=== PATIENT | male | born 1995 | race Caucasian/White ===

== ENCOUNTER 2021-03-24 14:29 | Inpatient (IN) | payer BC, SELFPAY ==
[2021-03-24] VITALS (7 sets, daily range): BP systolic 134–157; BP diastolic 60–79; PULSE 116–124; RESP 24–28; TEMP 36.8–37.6; O2SAT 89–98; BMI 51.5
--- NOTE | ~2021-03-24 | CT_ITS ---
EXAMINATION: CT ANGIOGRAM OF THE CHEST WITH AND WITHOUT CONTRAST (CT PULMONARY ANGIOGRAM FOR PE) CLINICAL INFORMATION: Tachycardia. Hypoxia. COMPARISON: Chest x-ray earlier this evening TECHNIQUE: Prior to contrast administration, noncontrast localization images were obtained. Subsequently, multidetector volumetric imaging was performed from the thoracic inlet to below the diaphragms following the administration of 65 mL Omnipaque 350 intravenous contrast. No contrast reaction reported. Please note contrast injection is suboptimal due to positional IV flow and leakage of contrast during injection. Today's examination is limited secondary to respiratory motion artifact. Sagittal, coronal, and MIP oblique sagittal reformatted images were obtained on the CT workstation, uploaded to PACS, and reviewed. This CT examination was performed using dose optimization techniques as appropriate, variously including the following: *Automated exposure control *Adjustment of mA and/or kV according to patient size (this includes techniques or standardized protocols for targeted exams where dose is matched to indication/reason for exam; i.e. extremities or head) *Use of iterative reconstruction technique Total exam dose-length product 723 mGy-cm FINDINGS: Contrast bolus for pulmonary embolism is suboptimal. The heart is normal in size. There is no CT evidence to suggest right-sided heart strain. Evaluation for mediastinal lymphadenopathy is suboptimal although there appears to be a few mildly prominent mediastinal lymph nodes, for example a 3.7 cm lymph node. Normal caliber thoracic aorta. Diffuse soft tissue within the anterior mediastinum is nonspecific but most suggestive of residual thymus. No enlarged axillary lymph nodes. Central airways are patent. The lungs appear well aerated. Fine parenchymal detail is obscured due to prominent respiratory motion artifact, however, there appears to be subsegmental atelectasis within the lingula and right middle lobe. Some mild diffuse tree-in-bud and groundglass opacities are also noted. I do not appreciate any gross lobar consolidation. No pleural effusion or pneumothorax. Visualized portion of the upper abdomen demonstrate diffusely decreased attenuation of the liver suggesting hepatic steatosis. Densities within both kidneys are nonspecific but are suspected to represent contrast within the collecting system. No acute osseous abnormality. CT/CT angio chest PE protocol IMPRESSION: 1. Today's examination is significantly limited due to suboptimal contrast bolus and prominent respiratory motion artifact. 2. Evaluation for pulmonary embolus cannot be obtained on today's examination due to minimal contrast within the pulmonary arterial system. There is no CT evidence to suggest right-sided heart strain. 3. Appears to be a few prominent mediastinal lymph nodes, nonspecific. 4. Some mild diffuse tree-in-bud and groundglass opacities are suspected throughout the lungs suggesting an infectious or inflammatory etiology. Clinical correlation is recommended. 5. Diffusely decreased liver attenuation suggesting hepatic steatosis. Correlation with liver enzymes recommended. Given the significant limitations of today's imaging, follow-up CT may be warranted when the patient is able. VTE: indeterminate
--- NOTE | ~2021-03-24 | XR_ITS ---
EXAMINATION: XR CHEST CLINICAL INFORMATION: Dyspnea. COMPARISON: Chest x-ray 07/07/2016 TECHNIQUE: 2 views of the chest were obtained. FINDINGS: The lungs are well-expanded without acute pneumonic process. The heart size is normal. There is slight increased vascularity question mild vascular congestion. There is no pleural effusion. Bone windows reveal no calvarial abnormality. XR/XR chest 2V IMPRESSION: Mild increased pulmonary vascularity likely mild congestion.
[2021-03-24 15:39] LABS: COVID-19 Test Negative (Negative)
--- NOTE | 2021-03-24 16:35 | ECG_ITS ---
Test Reason : SOB Blood Pressure : / mmHG Vent. Rate : 117 BPM Atrial Rate : 117 BPM P-R Int : 144 ms QRS Dur : 076 ms QT Int : 326 ms P-R-T Axes : 015 049 017 degrees QTc Int : 454 ms Sinus tachycardia Otherwise normal ECG When compared with ECG of 10-OCT-2016 19:07, No significant changes seen Referred By: Natasha Coulter Electronically Signed By:KARINA INIGUEZ
--- NOTE | 2021-03-24 16:57 | ED.URI ---
HPI - URI/Sore Throat General Chief Complaint: Upper Respiratory Symptoms Stated Complaint: EAR PAIN DIFF BREATHING Time Seen by Provider: 03/24/21 16:35 Source: patient Mode of arrival: ambulatory Limitations: no limitations History of Present Illness HPI Narrative: 25-year-old male presents with 5 days of upper respiratory symptoms. He has had a cough, shortness of breath, body aches, chest tightness and fevers. MD elicited complaint: fever, cough, sore throat and nasal congestion Onset (ago): day(s) (5) Consistency: constant Severity: severe Pain scale (0-10): 8 Able to tolerate fluids by mouth: Yes Exacerbating factors: exertion, speaking and deep breaths Relieving factors: nothing Associated symptoms: fever, chills, myalgias, headache, sore throat, cough, shortness of breath and nausea Treatments prior to arrival: acetaminophen, ibuprofen and cold medicine Related Data Home Medications Medication Instructions Recorded Confirmed No Known Home Meds 03/24/21 03/24/21 Allergies Allergy/AdvReac Type Severity Reaction Status Date / Time No Known Allergies Allergy Unverified 01/07/20 16:23 Review of Systems Review of Systems: Constitutional: positive Fever, positive Chills, positive fatigue, positive Malaise ENT/Mouth: positive sore throat, positive runny nose, positive bilateral ear pain Eyes: No Discharge Cardiovascular: Positive Chest Pain, positive SOB, positive tachycardia Respiratory: Positive Cough, No Sputum, positive Wheezing, No Smoke Exposure, positive Dyspnea Gastrointestinal: No Nausea, No Vomiting, No Diarrhea Genitourinary: no irregular bleeding, No Dysuria, No Urinary Frequency, No Hematuria, No Urinary Incontinence, No Urgency, No Flank Pain, Musculoskeletal: positive Myalgia Skin: No rash Neuro: No Headache Yes all other systems are reviewed and are negative [facility] Past Medical History Attestation statement: The following information was validated with the patient. Source: old records reviewed Medical History Asthma Hx of fracture of arm Sleep apnea Surgical History History of surgery on arm Social History Social History Advance Directives: No Advance Directives Information Provided: No Physical Exam Vital Signs: Vital Signs: Last Vital Signs Temp 99.7 F 03/24/21 20:39 Pulse 124 H 03/24/21 21:10 Resp 28 H 03/24/21 20:36 BP 157/60 H 03/24/21 20:36 Pulse Ox 94 03/24/21 20:36 BMI result Body Mass Index 51.5 Appearance: Alert. Oriented X3. Moderate distress. Head: Normal external exam. Normocephalic. Atraumatic. No Ashby signs noted. No raccoon eyes noted Eyes: PERRLA. EOMI. Conjunctiva and sclera normal. Eyelids normal. ENT: TM's bulging and suppurative bilaterally. Pharynx normal. Uvula midline. Moist mucous membranes. No trismus noted. No drooling noted. No muffled voice noted. Neck: Normal inspection. Neck supple. Anterior posterior cervical adenopathy. No meningeal signs. No nuchal rigidity. No neck mass noted. CVS: Tachycardic heart rate and rhythm. Heart sound normal. Pulses equal to all extremities. Respiratory: Moderate respiratory distress. Painless inspiration. Wheezing and poor air flow throughout. Chest nontender. No accessory muscle usage noted or decreased air movement noted. Abdomen: Soft and nontender. Bowel sounds normal in all 4 quadrants. No distention noted. No organomegaly noted. No visible injury noted. Back: No CVA tenderness. Full range of motion noted. Skin: Skin warm and dry. Normal skin color. Normal skin turgor. No rashes/lesions/lacerations noted. Extremities: No lower extremity edema. Extremities exhibit normal range of motion. Extremities nontender. Neuro: cranial nerves 2-12 intact, no focal neural deficits, strength 5/5 to all extremities, No motor deficit. No sensory deficit. Course Course Course Narrative: E.d. waiting room time 2:00 a.m. and 28 minutes. 4:57 p.m. sepsis protocol initiated. Patient is morbidly obese, chest x-ray shows pulmonary congestion, once CT scan or BNP rules out CHF patient fluid resuscitate will be for ideal body weight. Patient requires 2 L of nasal cannula to keep O2 sat above 90%. 8:[address] scan shows diffuse tree-in-bud ground-glass opacities suggesting pneumonia. Fluid resuscitation started at this time. 8:19 p.m. lactic acid 1.2. Patient does not have any other organ dysfunction, patient not septic but meets criteria for SIRS with elevated respiration rate and heart rate and elevated white count. Positive for pneumonia for CT scan. 8:23 p.m. discussion with hospitalist, plan of care is to admit for hypoxia, pneumonia and bilateral otitis media. Consultations Consultation #1: Patrick Time: 20:20 MDM - URI/Sore Throat MDM Narrative Medical decision making narrative: Pneumonia Differential Diagnosis Differential diagnosis: Likely upper respiratory infection, otitis media, viral infection, bronchitis, influenza and pharyngitis Medical Records Attestation: I reviewed the patient's medical records. Lab Data Attestation: I reviewed the patient's lab results. Result diagrams: 03/24/21 19:54 03/24/21 17:46 Labs: Lab Results 03/24/21 03/24/21 03/24/21 Range/Units 15:05 17:46 17:46 WBC (4.8-10.8) X10*3/uL RBC (4.60-5.80) X10*6/uL Hgb (14.0-18.0) g/dl Hct (42.0-52.0) % MCV (80.0-98.0) fL MCH (27.0-33.0) pg MCHC (31.0-36.0) g/dl RDW (11.0-16.0) % Plt Count (160-400) X10*3/uL MPV (9.4-12.4) fL Immature Gran % (Auto) (0.0-0.4) % Neut % (Auto) (45-73) % Lymph % (Auto) (20-40) % [place] % (Auto) (2-11) % Eos % (Auto) (0-4) % Baso % (Auto) (0-2) % Lymph # (Auto) (1.2-4.9) X10*3/uL [place] # (Auto) (0.1-1.2) X10*3/uL Eos # (Auto) (0.0-0.4) X10*3/uL Baso # (Auto) (0.0-0.2) X10*3/uL Abs Immat Gran (auto) (0.00-0.03) X10*3/uL Absolute Neuts (auto) (2.0-8.3) x10*3/uL Absolute Nucleated RBC (0.0-0.012) X10*3/uL Nucleated RBC % (auto) (0.0-0.2) /100WBC Hold Purple Top PT 13.3 H (9.9-13.0) SEC INR 1.2 H (0.9-1.1) VBG pH (7.32-7.43) VBG pCO2 mmHg VBG pO2 mmHg VBG HCO3 (22-26) mmol/L VBG O2 Saturation % VBG Base Excess mmol/L Sodium 138 (135-145) mmol/L Potassium 4.0 (3.3-5.1) mmol/L Chloride 99 (96-108) mmol/L Carbon Dioxide 27 (22-29) mmol/L Anion Gap 16 (12-20) BUN 9 (9-16) mg/dL Creatinine 0.78 (0.5-1.4) mg/dL Estim Creat Clear Calc 184.1 Estimated GFR > 60 Random Glucose 102 (60-115) mg/dL Lactic Acid (0.5-2.0) mmol/L Calcium 9.9 (8.4-10.2) mg/dL Magnesium 2.1 (1.6-2.6) mg/dL Ferritin 242 (20-250) ng/mL Total Bilirubin 0.9 (0.0-1.0) mg/dL AST 33 (5-37) U/L ALT 37 (0-40) U/L Alkaline Phosphatase 100 (39-117) U/L Lactate Dehydrogenase 228 (118-273) U/L B-Natriuretic Peptide (<100) pg/mL Total Protein 7.9 (6.5-8.0) g/dL Albumin 4.5 (3.5-5.0) g/dL Procalcitonin ng/mL COVID-19 ([facility]) Negative (Negative) COVID-19 Clin Com See Note Influenza Type A (PCR) (Negative) Influenza Type B (PCR) (Negative) RSV RNA Qual (PCR) (Negative) SARS-CoV-2 RNA (RT-PCR) (Negative) 03/24/21 03/24/21 03/24/21 Range/Units 17:46 17:46 17:46 WBC (4.8-10.8) X10*3/uL RBC (4.60-5.80) X10*6/uL Hgb (14.0-18.0) g/dl Hct (42.0-52.0) % MCV (80.0-98.0) fL MCH (27.0-33.0) pg MCHC (31.0-36.0) g/dl RDW (11.0-16.0) % Plt Count (160-400) X10*3/uL MPV (9.4-12.4) fL Immature Gran % (Auto) (0.0-0.4) % Neut % (Auto) (45-73) % Lymph % (Auto) (20-40) % [place] % (Auto) (2-11) % Eos % (Auto) (0-4) % Baso % (Auto) (0-2) % Lymph # (Auto) (1.2-4.9) X10*3/uL [place] # (Auto) (0.1-1.2) X10*3/uL Eos # (Auto) (0.0-0.4) X10*3/uL Baso # (Auto) (0.0-0.2) X10*3/uL Abs Immat Gran (auto) (0.00-0.03) X10*3/uL Absolute Neuts (auto) (2.0-8.3) x10*3/uL Absolute Nucleated RBC (0.0-0.012) X10*3/uL Nucleated RBC % (auto) (0.0-0.2) /100WBC Hold Purple Top PT (9.9-13.0) SEC INR (0.9-1.1) VBG pH (7.32-7.43) VBG pCO2 mmHg VBG pO2 mmHg VBG HCO3 (22-26) mmol/L VBG O2 Saturation % VBG Base Excess mmol/L Sodium (135-145) mmol/L Potassium (3.3-5.1) mmol/L Chloride (96-108) mmol/L Carbon Dioxide (22-29) mmol/L Anion Gap (12-20) BUN (9-16) mg/dL Creatinine (0.5-1.4) mg/dL Estim Creat Clear Calc Estimated GFR Random Glucose (60-115) mg/dL Lactic Acid (0.5-2.0) mmol/L Calcium (8.4-10.2) mg/dL Magnesium (1.6-2.6) mg/dL Ferritin (20-250) ng/mL Total Bilirubin (0.0-1.0) mg/dL AST (5-37) U/L ALT (0-40) U/L Alkaline Phosphatase (39-117) U/L Lactate Dehydrogenase (118-273) U/L B-Natriuretic Peptide < 10 (<100) pg/mL Total Protein (6.5-8.0) g/dL Albumin (3.5-5.0) g/dL Procalcitonin 0.06 ng/mL COVID-19 ([facility]) (Negative) COVID-19 Clin Com Influenza Type A (PCR) NEGATIVE (Negative) Influenza Type B (PCR) NEGATIVE (Negative) RSV RNA Qual (PCR) NEGATIVE (Negative) SARS-CoV-2 RNA (RT-PCR) NEGATIVE (Negative) 03/24/21 03/24/21 03/24/21 Range/Units 19:54 19:54 19:54 WBC 19.9 H (4.8-10.8) X10*3/uL RBC 4.61 (4.60-5.80) X10*6/uL Hgb 13.8 L (14.0-18.0) g/dl Hct 42.4 (42.0-52.0) % MCV 92.0 (80.0-98.0) fL MCH 29.9 (27.0-33.0) pg MCHC 32.5 (31.0-36.0) g/dl RDW 13.2 (11.0-16.0) % Plt Count 265 (160-400) X10*3/uL MPV 10.3 (9.4-12.4) fL Immature Gran % (Auto) 0.5 H (0.0-0.4) % Neut % (Auto) 83.9 H (45-73) % Lymph % (Auto) 7.0 L (20-40) % [place] % (Auto) 6.6 (2-11) % Eos % (Auto) 1.6 (0-4) % Baso % (Auto) 0.4 (0-2) % Lymph # (Auto) 1.4 (1.2-4.9) X10*3/uL [place] # (Auto) 1.3 H (0.1-1.2) X10*3/uL Eos # (Auto) 0.3 (0.0-0.4) X10*3/uL Baso # (Auto) 0.1 (0.0-0.2) X10*3/uL Abs Immat Gran (auto) 0.09 H (0.00-0.03) X10*3/uL Absolute Neuts (auto) 16.7 H (2.0-8.3) x10*3/uL Absolute Nucleated RBC 0.000 (0.0-0.012) X10*3/uL Nucleated RBC % (auto) 0.0 (0.0-0.2) /100WBC Hold Purple Top SEE NOTE PT (9.9-13.0) SEC INR (0.9-1.1) VBG pH (7.32-7.43) VBG pCO2 mmHg VBG pO2 mmHg VBG HCO3 (22-26) mmol/L VBG O2 Saturation % VBG Base Excess mmol/L Sodium (135-145) mmol/L Potassium (3.3-5.1) mmol/L Chloride (96-108) mmol/L Carbon Dioxide (22-29) mmol/L Anion Gap (12-20) BUN (9-16) mg/dL Creatinine (0.5-1.4) mg/dL Estim Creat Clear Calc Estimated GFR Random Glucose (60-115) mg/dL Lactic Acid 1.2 (0.5-2.0) mmol/L Calcium (8.4-10.2) mg/dL Magnesium (1.6-2.6) mg/dL Ferritin (20-250) ng/mL Total Bilirubin (0.0-1.0) mg/dL AST (5-37) U/L ALT (0-40) U/L Alkaline Phosphatase (39-117) U/L Lactate Dehydrogenase (118-273) U/L B-Natriuretic Peptide (<100) pg/mL Total Protein (6.5-8.0) g/dL Albumin (3.5-5.0) g/dL Procalcitonin ng/mL COVID-19 ([facility]) (Negative) COVID-19 Clin Com Influenza Type A (PCR) (Negative) Influenza Type B (PCR) (Negative) RSV RNA Qual (PCR) (Negative) SARS-CoV-2 RNA (RT-PCR) (Negative) 03/24/21 Range/Units 19:57 WBC (4.8-10.8) X10*3/uL RBC (4.60-5.80) X10*6/uL Hgb (14.0-18.0) g/dl Hct (42.0-52.0) % MCV (80.0-98.0) fL MCH (27.0-33.0) pg MCHC (31.0-36.0) g/dl RDW (11.0-16.0) % Plt Count (160-400) X10*3/uL MPV (9.4-12.4) fL Immature Gran % (Auto) (0.0-0.4) % Neut % (Auto) (45-73) % Lymph % (Auto) (20-40) % [place] % (Auto) (2-11) % Eos % (Auto) (0-4) % Baso % (Auto) (0-2) % Lymph # (Auto) (1.2-4.9) X10*3/uL [place] # (Auto) (0.1-1.2) X10*3/uL Eos # (Auto) (0.0-0.4) X10*3/uL Baso # (Auto) (0.0-0.2) X10*3/uL Abs Immat Gran (auto) (0.00-0.03) X10*3/uL Absolute Neuts (auto) (2.0-8.3) x10*3/uL Absolute Nucleated RBC (0.0-0.012) X10*3/uL Nucleated RBC % (auto) (0.0-0.2) /100WBC Hold Purple Top PT (9.9-13.0) SEC INR (0.9-1.1) VBG pH 7.40 (7.32-7.43) VBG pCO2 50 mmHg VBG pO2 43 mmHg VBG HCO3 31 H (22-26) mmol/L VBG O2 Saturation 67.0 % VBG Base Excess 5.4 mmol/L Sodium (135-145) mmol/L Potassium (3.3-5.1) mmol/L Chloride (96-108) mmol/L Carbon Dioxide (22-29) mmol/L Anion Gap (12-20) BUN (9-16) mg/dL Creatinine (0.5-1.4) mg/dL Estim Creat Clear Calc Estimated GFR Random Glucose (60-115) mg/dL Lactic Acid (0.5-2.0) mmol/L Calcium (8.4-10.2) mg/dL Magnesium (1.6-2.6) mg/dL Ferritin (20-250) ng/mL Total Bilirubin (0.0-1.0) mg/dL AST (5-37) U/L ALT (0-40) U/L Alkaline Phosphatase (39-117) U/L Lactate Dehydrogenase (118-273) U/L B-Natriuretic Peptide (<100) pg/mL Total Protein (6.5-8.0) g/dL Albumin (3.5-5.0) g/dL Procalcitonin ng/mL COVID-19 ([facility]) (Negative) COVID-19 Clin Com Influenza Type A (PCR) (Negative) Influenza Type B (PCR) (Negative) RSV RNA Qual (PCR) (Negative) SARS-CoV-2 RNA (RT-PCR) (Negative) Imaging Data CT PE study: Attestation: I personally reviewed and interpreted this imaging study as follows: Radiologist's impression: EXAMINATION: CT ANGIOGRAM OF THE CHEST WITH AND WITHOUT CONTRAST (CT PULMONARY ANGIOGRAM FOR PE) CLINICAL INFORMATION: Tachycardia. Hypoxia. COMPARISON: Chest x-ray earlier this evening? TECHNIQUE: Prior to contrast administration, noncontrast localization images were obtained. ? Subsequently, multidetector volumetric imaging was performed from the thoracic inlet to below the diaphragms following the administration of 65 mL Omnipaque 350 intravenous contrast. No contrast reaction reported. Please note contrast injection is suboptimal due to positional IV flow and leakage of contrast during injection. Today's examination is limited secondary to respiratory motion artifact. Sagittal, coronal, and MIP oblique sagittal reformatted images were obtained on the CT workstation, uploaded to PACS, and reviewed. This CT examination was performed using dose optimization techniques as appropriate, variously including the following: *Automated exposure control *Adjustment of mA and/or kV according to patient size (this includes techniques or standardized protocols for targeted exams where dose is matched to indication/reason for exam; i.e. extremities or head) *Use of iterative reconstruction technique Total exam dose-length product 723 mGy-cm FINDINGS: Contrast bolus for pulmonary embolism is suboptimal. The heart is normal in size. There is no CT evidence to suggest right-sided heart strain. Evaluation for mediastinal lymphadenopathy is suboptimal although there appears to be a few mildly prominent mediastinal lymph nodes, for example a 3.7 cm lymph node. Normal caliber thoracic aorta. Diffuse soft tissue within the anterior mediastinum is nonspecific but most suggestive of residual thymus. No enlarged axillary lymph nodes. Central airways are patent. The lungs appear well aerated. Fine parenchymal detail is obscured due to prominent respiratory motion artifact, however, there appears to be subsegmental atelectasis within the lingula and right middle lobe. Some mild diffuse tree-in-bud and groundglass opacities are also noted. I do not appreciate any gross lobar consolidation. No pleural effusion or pneumothorax. Visualized portion of the upper abdomen demonstrate diffusely decreased attenuation of the liver suggesting hepatic steatosis. Densities within both kidneys are nonspecific but are suspected to represent contrast within the collecting system. No acute osseous abnormality. CT/CT angio chest PE protocol IMPRESSION: 1.? Today's examination is significantly limited due to suboptimal contrast bolus and prominent respiratory motion artifact. 2. ? Evaluation for pulmonary embolus cannot be obtained on today's examination due to minimal contrast within the pulmonary arterial system. There is no CT evidence to suggest right-sided heart strain. 3.? Appears to be a few prominent mediastinal lymph nodes, nonspecific. 4.? Some mild diffuse tree-in-bud and groundglass opacities are suspected throughout the lungs suggesting an infectious or inflammatory etiology. Clinical correlation is recommended. 5.? Diffusely decreased liver attenuation suggesting hepatic steatosis. Correlation with liver enzymes recommended. ? Given the significant limitations of today's imaging, follow-up CT may be warranted when the patient is able. Chest x-ray: Attestation: I personally reviewed and interpreted this imaging study as follows: Radiologist's impression: EXAMINATION: XR CHEST CLINICAL INFORMATION: Dyspnea. COMPARISON: Chest x-ray 07/07/2016 TECHNIQUE: 2 views of the chest were obtained. FINDINGS: The lungs are well-expanded without acute pneumonic process. The heart size is normal. There is slight increased vascularity question mild vascular congestion. There is no pleural effusion. Bone windows reveal no calvarial abnormality. XR/XR chest 2V IMPRESSION: Mild increased pulmonary vascularity likely mild congestion. ECG Data Attestation: I personally reviewed and interpreted this ECG as follows: ECG interpretation date: 03/24/21 ECG interpretation time: 16:35 Prior ECG tracings: available for review Interpretation: Vent. Rate : 117 BPM ? ? Atrial Rate : 117 BPM ?? P-R Int : 144 ms? QRS Dur : 076 ms ? ? QT Int : 326 ms ? ? ? P-R-T Axes : 015 049 017 degrees ?? QTc Int : 454 ms ? Sinus tachycardia Otherwise normal ECG When compared with ECG of 10-OCT-2016 19:07, Criteria for Septal infarct are no longer Present Critical Care Time Critical Care Time Critical Care Time: Yes Total Critical Care Time: 65 Attestation: I have personally provided critical care time exclusive of time spent on separately billable procedures. Time includes review of laboratory data, radiology results, discussion with consultants, and monitoring for potential decompensation. Interventions were performed as documented. Discharge Plan Discharge Clinical Impression: Hypoxia Pneumonia Qualifiers: Pneumonia type: due to unspecified organism Laterality: bilateral Lung location: unspecified part of lung Qualified Code(s): J18.9 - Pneumonia, unspecified organism Otitis media Qualifiers: Otitis media type: suppurative Chronicity: acute Laterality: bilateral Recurrence: not specified as recurrent Spontaneous tympanic membrane rupture: without spontaneous rupture Qualified Code(s): H66.003 - Acute suppurative otitis media without spontaneous rupture of ear drum, bilateral Patient Disposition: Admitted As Inpatient
--- NOTE | 2021-03-24 17:15 | PC.NURSE ---
WILL HOLD OFF ON IV FLUIDS UNTIL CT SCAN RESULTS TO RULE OUT ANY CHF OR CONGESTION IN LUNGS, CLOVER COIL INSPECTOR AWARE.
--- NOTE | 2021-03-24 17:28 | PHA.MEDREC ---
Pharmacy Consult ? Medication Reconciliation Pharmacy has completed the medication reconciliation. Spoke with patient in [facility]. Patient only took Robitussin PRN.
[2021-03-24 18:10] LABS: INTERNATIONAL NORM RATIO 1.2 (0.9-1.1); Prothrombin Time 13.3 SEC (9.9-13.0)
[2021-03-24 18:17] LABS: Alanine Aminotransferase 37 U/L (0-40); Albumin Level 4.5 g/dL (3.5-5.0); Alkaline Phosphatase 100 U/L (39-117); Anion Gap 16 (12-20); Aspartate Amino Transferase 33 U/L (5-37); Bilirubin Total 0.9 mg/dL (0.0-1.0); Blood Urea Nitrogen 9 mg/dL (9-16); Calcium 9.9 mg/dL (8.4-10.2); Carbon Dioxide 27 mmol/L (22-29); Chloride 99 mmol/L (96-108); Creatinine Clr Calc Pharmacy 184.1; Estimated Glomerular Filt Rate > 60; Glucose Random 102 mg/dL (60-115); Magnesium 2.1 mg/dL (1.6-2.6); Sodium 138 mmol/L (135-145); Total Protein 7.9 g/dL (6.5-8.0)
[2021-03-24 18:22] LABS: B Type Natriuretic Peptide < 10 pg/mL (<100)
[2021-03-24 18:23] LABS: Lactate Dehydrogenase 228 U/L (118-273)
[2021-03-24] MEDS: cefTRIAXone sodium 1 GM in 0.9 % Sodium Chloride 50 ML IV (18:28)
[2021-03-24] MEDS: dexAMETHasone sod phosphate 4 MG/ML VIAL 6 MG IVPUSH (18:28)
[2021-03-24 18:37] LABS: Ferritin 242 ng/mL (20-250)
--- NOTE | 2021-03-24 18:37 | PC.NURSE ---
Pt medicated per JUN. technical advisor at bedside for remaining labs and EKG. Per NEMATOLOGIST, to hold off on IVF until BNP results.
[2021-03-24 18:39] LABS: Influenza A PCR NEGATIVE (Negative); Influenza B PCR NEGATIVE (Negative); Resp Syncy Virus RNA Qual PCR NEGATIVE (Negative); SARS COV2 PCR INHOUSE NEGATIVE (Negative)
[2021-03-24 19:01] LABS: Procalcitonin 0.06 ng/mL
[2021-03-24] MEDS: iohexoL 350 MG/ML 100 ML INFUS..BTL 71 ML IV (19:13)
--- NOTE | 2021-03-24 19:40 | PC.NURSE ---
Phleb called for labs.
[2021-03-24 19:59] LABS: MANUAL DIFF FLAG NO
[2021-03-24 20:04] LABS: Basophils Absolute Auto 0.1 X10*3/uL (0.0-0.2); Basophils Percent Auto 0.4 % (0-2); Eosinophils Absolute Auto 0.3 X10*3/uL (0.0-0.4); Eosinophils Percent Auto 1.6 % (0-4); Hematocrit 42.4 % (42.0-52.0); Hemoglobin 13.8 g/dl (14.0-18.0); Imm Gran Abs Auto 0.09 X10*3/uL (0.00-0.03); Imm Gran Pct Auto 0.5 % (0.0-0.4); Lymphocytes Absolute Auto 1.4 X10*3/uL (1.2-4.9); Mean Corpuscular HGB Conc 32.5 g/dl (31.0-36.0); Mean Corpuscular Hemoglobin 29.9 pg (27.0-33.0); Mean Platelet Volume 10.3 fL (9.4-12.4); Monocytes Absolute Auto 1.3 X10*3/uL (0.1-1.2); Monocytes Percent Auto 6.6 % (2-11); Neutrophils Absolute Auto 16.7 x10*3/uL (2.0-8.3); Neutrophils Percent Auto 83.9 % (45-73); Platelet Count 265 X10*3/uL (160-400); Red Blood Count 4.61 X10*6/uL (4.60-5.80); Red Cell Distribution Width 13.2 % (11.0-16.0); White Blood Count 19.9 X10*3/uL (4.8-10.8)
[2021-03-24 20:16] LABS: Lactic Acid 1.2 mmol/L (0.5-2.0)
[2021-03-24] MEDS: 0.9 % Sodium Chloride 1,000 ML 999 ML IVCONT ×2 (20:28)
[2021-03-24] MEDS: Azithromycin 500 MG in 0.9 % Sodium Chloride 250 ML 125 MG IV (20:35)
[2021-03-24 20:38] LABS: VBG Base Excess 5.4 mmol/L; VBG HCO3 31 mmol/L (22-26); VBG pCO2 50 mmHg; VBG pO2 43 mmHg
[2021-03-24 20:39] LABS: Venous Blood Gas Refer to POC result
--- NOTE | 2021-03-24 20:44 | PC.NURSE ---
Pt medicated per MAR with IVF and ABX. Pt requesting PO intake. Per LASER BEAM TRIM OPERATOR to hold for now due to tachypnea and decreased O2 sats. VSS at this time.
--- NOTE | 2021-03-24 20:59 | PC.NURSE ---
Hospitalist at bedside for primary eval.
--- NOTE | 2021-03-24 21:25 | P.HPHOSP_ITS ---
History of Present Illness Date of Service: 03/24/21 Chief Complaint: cough, SOB 25-year-old male with no significant past medical history who presents to the hospital with complaints of fevers, shortness of breath, cough, sputum production, chills, diaphoresis, for the past 5 days. Patient also developed infection started last night with ear pain bilaterally as well as ear discharge. He denies any abdominal pain nausea or vomiting, no diarrhea constipation, no urinary symptoms with no lower extremity edema. Patient is unvaccinated against COVID-19. His not had any recent sick contacts that he is aware of. On arrival to the ED patient hemodynamically stable with a temp of 98.3, heart rate of 121, respiratory rate of 24, blood pressure 151/79, satting 89% on room air. Patient now on 3 L of oxygen satting 94%. Labs are significant for WBC count of 19.9, BNP negative, otherwise unremarkable. COVID-19 PCR negative, RSV negative, influenza a and B are negative. chest x-ray as well as CT angiogram shows bilateral infiltrate patient will be admitted for management of hypoxia pneumonia Review of Systems Review of Systems: Yes all other systems are reviewed and are negative REPLACED BY [facility] Medical History Asthma Hx of fracture of arm Sleep apnea Family History (Updated 03/25/21 @ 06:40 by Senia Nguyen MD) Mother CVA (cerebral vascular accident) Surgical History History of surgery on arm Social History Household Members: Family Housing: House Do you presently have visiting nurse or other home services: No Patient Tobacco Use Status: Current someday Tobacco user Cigarettes Per Day: 10 Years Smoked: 3 Patient Interested in Nicotine Replacement: No (refused) Patient Given Instructions on How to Stop Smoking: No Second Hand Smoke Exposure: No Use of substances other than those prescribed or required for medical reasons: Yes Substance Use Type: Marijuana Substance Use Frequency: Occasionally Last Used Substance: Weeks (ago) Last Used Substance Other:: 1 week ago. Currently Displaying Signs/Symptoms of Drug Intoxication Withdrawal: No Any prior treatment program specific to substance use: No Have you been hit, kicked, punched, or otherwise hurt by someone within the past year? If so, by whom?: No Do you feel safe in your current relationship?: No Is there a partner from a previous relationship who is making you feel unsafe now?: No Are you made to feel afraid or neglected: No Advance Directives: No Advance Directives Information Provided: No Do you have thoughts of harming others: None Do you have a plan to hurt others: No Plan Recently lost weight without trying: No Eating poorly because of decreased appetite: Yes Nutrition Risks: No Nutritional Risk Poor oral hygiene: No Meds Allergies Allergy/AdvReac Type Severity Reaction Status Date / Time No Known Allergies Allergy Unverified 01/07/20 16:23 Active Medications: Current Medications Azithromycin 500 mg/ Sodium (Chloride) 250 mls @ 125 mls/hr IV ONCE ONE Stop: 03/24/21 22:10 Last Infusion: 03/24/21 20:46 Dose: Infused Documented by: Home Medications Medication Instructions Recorded Confirmed Last Taken Type No Known Home Meds 03/24/21 03/24/21 Unknown History Physical Exam Vital Signs and Narrative: Vital Signs: Last Vital Signs Temp 99.7 F 03/24/21 20:39 Pulse 124 H 03/24/21 21:10 Resp 28 H 03/24/21 20:36 BP 157/60 H 03/24/21 20:36 Pulse Ox 94 03/24/21 20:36 BMI result Body Mass Index 51.5 Const: Other: ill-appearing General: cooperative and no acute distress Orientation/consciousness: patient oriented x3 HENMT: Other: discharge bilaterally tympanic membrane intact Eyes: General: appearance normal, both eyes and all related structures Pupils: Equal, round and reactive pupils present Resp: Other: bilateral crackles Effort & Inspection: normal respiratory effort Cardio: Rate: regular rate Rhythm: regular rhythm GI: Palpation (GI): Soft to palpation Auscultation: normal bowel sounds Skin: General skin exam: no rashes or lesions noted Neuro: General: patient oriented x3 Cranial nerves: Yes Equal, round and reactive pupils present Cognition (Neuro): normal cognition Extrem: General: Yes normal to inspection and Yes no pedal edema Results Labs CBC and Chem 7: 03/24/21 19:54 03/24/21 17:46 Labs: Laboratory Results - last 24 hr 03/24/21 03/24/21 03/24/21 15:05 17:46 17:46 MCV MCH MCHC RDW Plt Count MPV Immature Gran % (Auto) Neut % (Auto) Lymph % (Auto) [place] % (Auto) Eos % (Auto) Baso % (Auto) Lymph # (Auto) [place] # (Auto) Eos # (Auto) Baso # (Auto) Abs Immat Gran (auto) Absolute Neuts (auto) Absolute Nucleated RBC Nucleated RBC % (auto) Hold Purple Top PT 13.3 H INR 1.2 H VBG pH VBG pCO2 VBG pO2 VBG HCO3 VBG O2 Saturation VBG Base Excess Anion Gap 16 Estim Creat Clear Calc 184.1 Estimated GFR > 60 Random Glucose 102 Lactic Acid Calcium 9.9 Magnesium 2.1 Ferritin 242 Total Bilirubin 0.9 AST 33 ALT 37 Alkaline Phosphatase 100 Lactate Dehydrogenase 228 B-Natriuretic Peptide Total Protein 7.9 Albumin 4.5 Procalcitonin COVID-19 ([facility]) Negative COVID-19 Clin Com See Note Influenza Type A (PCR) Influenza Type B (PCR) RSV RNA Qual (PCR) SARS-CoV-2 RNA (RT-PCR) 03/24/21 03/24/21 03/24/21 17:46 17:46 17:46 MCV MCH MCHC RDW Plt Count MPV Immature Gran % (Auto) Neut % (Auto) Lymph % (Auto) [place] % (Auto) Eos % (Auto) Baso % (Auto) Lymph # (Auto) [place] # (Auto) Eos # (Auto) Baso # (Auto) Abs Immat Gran (auto) Absolute Neuts (auto) Absolute Nucleated RBC Nucleated RBC % (auto) Hold Purple Top PT INR VBG pH VBG pCO2 VBG pO2 VBG HCO3 VBG O2 Saturation VBG Base Excess Anion Gap Estim Creat Clear Calc Estimated GFR Random Glucose Lactic Acid Calcium Magnesium Ferritin Total Bilirubin AST ALT Alkaline Phosphatase Lactate Dehydrogenase B-Natriuretic Peptide < 10 Total Protein Albumin Procalcitonin 0.06 COVID-19 ([facility]) COVID-19 Clin Com Influenza Type A (PCR) NEGATIVE Influenza Type B (PCR) NEGATIVE RSV RNA Qual (PCR) NEGATIVE SARS-CoV-2 RNA (RT-PCR) NEGATIVE 03/24/21 03/24/21 03/24/21 19:54 19:54 19:54 MCV 92.0 MCH 29.9 MCHC 32.5 RDW 13.2 Plt Count 265 MPV 10.3 Immature Gran % (Auto) 0.5 H Neut % (Auto) 83.9 H Lymph % (Auto) 7.0 L [place]rill % (Auto) 6.6 Eos % (Auto) 1.6 Baso % (Auto) 0.4 Lymph # (Auto) 1.4 [place]rill # (Auto) 1.3 H Eos # (Auto) 0.3 Baso # (Auto) 0.1 Abs Immat Gran (auto) 0.09 H Absolute Neuts (auto) 16.7 H Absolute Nucleated RBC 0.000 Nucleated RBC % (auto) 0.0 Hold Purple Top SEE NOTE PT INR VBG pH VBG pCO2 VBG pO2 VBG HCO3 VBG O2 Saturation VBG Base Excess Anion Gap Estim Creat Clear Calc Estimated GFR Random Glucose Lactic Acid 1.2 Calcium Magnesium Ferritin Total Bilirubin AST ALT Alkaline Phosphatase Lactate Dehydrogenase B-Natriuretic Peptide Total Protein Albumin Procalcitonin COVID-19 ([facility]) COVID-19 Clin Com Influenza Type A (PCR) Influenza Type B (PCR) RSV RNA Qual (PCR) SARS-CoV-2 RNA (RT-PCR) 03/24/21 19:57 MCV MCH MCHC RDW Plt Count MPV Immature Gran % (Auto) Neut % (Auto) Lymph % (Auto) [place] % (Auto) Eos % (Auto) Baso % (Auto) Lymph # (Auto) [place] # (Auto) Eos # (Auto) Baso # (Auto) Abs Immat Gran (auto) Absolute Neuts (auto) Absolute Nucleated RBC Nucleated RBC % (auto) Hold Purple Top PT INR VBG pH 7.40 VBG pCO2 50 VBG pO2 43 VBG HCO3 31 H VBG O2 Saturation 67.0 VBG Base Excess 5.4 Anion Gap Estim Creat Clear Calc Estimated GFR Random Glucose Lactic Acid Calcium Magnesium Ferritin Total Bilirubin AST ALT Alkaline Phosphatase Lactate Dehydrogenase B-Natriuretic Peptide Total Protein Albumin Procalcitonin COVID-19 ([facility]) COVID-19 Clin Com Influenza Type A (PCR) Influenza Type B (PCR) RSV RNA Qual (PCR) SARS-CoV-2 RNA (RT-PCR) Imaging Radiologist's Impressions: Impressions Chest X-Ray 03/24/21 15:25 IMPRESSION: Mild increased pulmonary vascularity likely mild congestion. Chest CTA 03/24/21 19:13 IMPRESSION: 1. Today's examination is significantly limited due to suboptimal contrast bolus and prominent respiratory motion artifact. 2. Evaluation for pulmonary embolus cannot be obtained on today's examination due to minimal contrast within the pulmonary arterial system. There is no CT evidence to suggest right-sided heart strain. 3. Appears to be a few prominent mediastinal lymph nodes, nonspecific. 4. Some mild diffuse tree-in-bud and groundglass opacities are suspected throughout the lungs suggesting an infectious or inflammatory etiology. Clinical correlation is recommended. 5. Diffusely decreased liver attenuation suggesting hepatic steatosis. Correlation with liver enzymes recommended. Given the significant limitations of today's imaging, follow-up CT may be warranted when the patient is able. VTE: indeterminate Assessment and Plan (1) Acute respiratory failure with hypoxia: Status: Acute (2) Pneumonia: Qualifiers: Laterality: bilateral Lung location: unspecified part of lung Pneumonia type: due to unspecified organism Qualified Code(s): J18.9 - Pneumonia, unspecified organism Status: Acute (3) Otitis media: Qualifiers: Chronicity: acute Laterality: bilateral Otitis media type: suppurative Recurrence: not specified as recurrent Spontaneous tympanic membrane rupture: without spontaneous rupture Qualified Code(s): H66.003 - Acute suppurative otitis media without spontaneous rupture of ear drum, bilateral Status: Acute (4) Sepsis: Status: Acute this is a 25-year-old male with no significant past medical history presents to the hospital with shortness of breath, cough, as well as your infection found to be hypoxic # sepsis - secondary to pneumonia - tachycardia, tachypnea, leukocytosis - lactic acidosis negative - will treat with IV antibiotics - follow cultures # acute hypoxic respiratory failure - secondary to pneumonia versus PE less likely - CT angiogram showed bilateral infiltrate although suboptimal to report on PE - COVID-19 likely although PCR as well as NAAT are negative - will start him on IV antibiotics - monitor respiratory status # pneumonia - possible COVID given the characteristic imaging on CT - not vaccinated against COVID - will consult Infectious Disease for further recommendation - IV antibiotics - follow cultures # otitis media - antibiotics as above DVT prophylaxis: Lovenox Quality Stroke Does the patient have a stroke diagnosis?: No VTE Prior VTE?: No VTE Risk Level:: Medical - moderate - high VTE Device Contraindication: Treatment Not Indicated VTE Drug Contraindication: N/A - Med Ordered
[2021-03-25] VITALS (9 sets, daily range): BP systolic 115–136; BP diastolic 53–73; PULSE 88–117; RESP 14–20; TEMP 36.6–36.9; O2SAT 93–97; BMI 51.5
[2021-03-25] MEDS: Enoxaparin Sodium 40 MG/0.4 ML SYRINGE SUBCUT (03:56)
[2021-03-25 08:39] LABS: MANUAL DIFF FLAG NO
[2021-03-25 08:42] LABS: Basophils Percent Auto 0.2 % (0-2); Eosinophils Percent Auto 0.1 % (0-4); Hematocrit 42.1 % (42.0-52.0); Hemoglobin 13.4 g/dl (14.0-18.0); Imm Gran Abs Auto 0.11 X10*3/uL (0.00-0.03); Imm Gran Pct Auto 0.6 % (0.0-0.4); Lymphocytes Absolute Auto 1.6 X10*3/uL (1.2-4.9); Mean Corpuscular HGB Conc 31.8 g/dl (31.0-36.0); Mean Corpuscular Hemoglobin 29.3 pg (27.0-33.0); Mean Corpuscular Volume 92.1 fL (80.0-98.0); Mean Platelet Volume 10.4 fL (9.4-12.4); Monocytes Absolute Auto 1.2 X10*3/uL (0.1-1.2); Monocytes Percent Auto 6.5 % (2-11); Neutrophils Absolute Auto 15.2 x10*3/uL (2.0-8.3); Neutrophils Percent Auto 83.6 % (45-73); Platelet Count 280 X10*3/uL (160-400); Red Blood Count 4.57 X10*6/uL (4.60-5.80); Red Cell Distribution Width 13.2 % (11.0-16.0); White Blood Count 18.1 X10*3/uL (4.8-10.8)
[2021-03-25] MEDS: guaiFENesin LA 600 MG TAB.ER.12H PO ×2 (09:08→21:23)
[2021-03-25] MEDS: methylPREDNISolone Sod Succ 40 MG/ML VIAL IVPUSH ×2 (09:08→21:23)
[2021-03-25 09:17] LABS: Anion Gap 14 (12-20); Blood Urea Nitrogen 12 mg/dL (9-16); Calcium 9.3 mg/dL (8.4-10.2); Carbon Dioxide 27 mmol/L (22-29); Chloride 102 mmol/L (96-108); Creatinine Clr Calc Pharmacy 186.5; Estimated Glomerular Filt Rate > 60; Glucose Random 115 mg/dL (60-115); Potassium 4.4 mmol/L (3.3-5.1); Sodium 139 mmol/L (135-145)
--- NOTE | 2021-03-25 10:56 | P.PNIM_ITS ---
Subjective Subjective Date of Service: 03/25/21 Interval History: the patient was seen and evaluated this morning Laying in bed, feels little better than yesterday Using CPAP at nighttime Still complaining of difficulty breathing, coughing and shortness of breath No reported other overnight events. Systemic review: No fever, chills or weakness No chest pain, palpitation Reporting dyspnea, shortness of breath and coughing No abdominal pain, nausea or vomiting No urinary symptoms Denies rash or wounds Physical Exam Vital Signs: Vital Signs: Last Vital Signs Temp 98.5 F 03/25/21 00:47 Pulse 95 03/25/21 08:05 Resp 20 03/25/21 08:05 BP 115/57 L 03/25/21 08:05 Pulse Ox 95 03/25/21 08:05 BMI result Body Mass Index 51.5 Const: Other: Constitutional : Alert, oriented, obese, in mild respiratory distress Neck : Normal inspection, Supple Cardiovascular : RRR, S1 S2, no lower extremity edema Respiratory : Decreased bilateral air entry with bilateral basal crackles and expiratory wheezes Gastrointestinal: soft, lax, Normal bowel sounds, Non tender Skin : Warm, Dry Neurological : Alert & oriented x3, No focal deficit Objective Data Active Medications Acetaminophen (Acetaminophen 325 Mg Tablet) 650 mg PO Q6H PRN PRN Reason: Pain, Mild (Pain Scale 1-3) Albuterol/Ipratropium (Albuterol/Iprat 2.5/0.5mg 3 Ml Ampul.Neb) 3 ml INHALE RQ4H WHILE AWAKE [facility] Last Admin: 03/25/21 08:54 Dose: Not Given Documented by: ARAM Non-Admin Reason: Patient Refused Docusate Sodium (Docusate Sodium 100 Mg Capsule) 100 mg PO DAILY PRN PRN Reason: Constipation Enoxaparin Sodium (Enoxaparin Sodium 40 Mg/0.4 Ml Syringe) 40 mg SUBCUT Q24H [facility] Last Admin: 03/25/21 03:56 Dose: 40 mg Documented by: PATEL Guaifenesin (Guaifenesin La 600 Mg Tab.Er.12h) 600 mg PO BID [facility] Last Admin: 03/25/21 09:08 Dose: 600 mg Documented by: MARLEE Ceftriaxone Sodium 1 gm/ (Sodium Chloride) 50 mls @ 100 mls/hr IV Q24H [facility] Azithromycin 500 mg/ Sodium (Chloride) 250 mls @ 125 mls/hr IV Q24H [facility] Methylprednisolone Sodium Succinate (Methylprednisolone Sod Succ 40 Mg/Ml Vial) 40 mg IVPUSH Q12H [facility] Last Admin: 03/25/21 09:08 Dose: 40 mg Documented by: MARLEE Ondansetron HCl (Ondansetron Hcl 4 Mg/2 Ml Vial) 4 mg IVPUSH Q8H PRN PRN Reason: Nausea and Vomiting Labs CBC & Chem 7: 03/25/21 08:18 03/25/21 08:18 Labs: Laboratory Results - last 24 hr 03/24/21 03/24/21 03/24/21 15:05 17:46 17:46 MCV MCH MCHC RDW Plt Count MPV Immature Gran % (Auto) Neut % (Auto) Lymph % (Auto) [place] % (Auto) Eos % (Auto) Baso % (Auto) Lymph # (Auto) [place] # (Auto) Eos # (Auto) Baso # (Auto) Abs Immat Gran (auto) Absolute Neuts (auto) Absolute Nucleated RBC Nucleated RBC % (auto) Hold Purple Top PT 13.3 H INR 1.2 H VBG pH VBG pCO2 VBG pO2 VBG HCO3 VBG O2 Saturation VBG Base Excess Anion Gap 16 Estim Creat Clear Calc 184.1 Estimated GFR > 60 Random Glucose 102 Lactic Acid Calcium 9.9 Magnesium 2.1 Ferritin 242 Total Bilirubin 0.9 AST 33 ALT 37 Alkaline Phosphatase 100 Lactate Dehydrogenase 228 B-Natriuretic Peptide Total Protein 7.9 Albumin 4.5 Procalcitonin COVID-19 ([facility]) Negative COVID-19 Clin Com See Note Influenza Type A (PCR) Influenza Type B (PCR) RSV RNA Qual (PCR) SARS-CoV-2 RNA (RT-PCR) 03/24/21 03/24/21 03/24/21 17:46 17:46 17:46 MCV MCH MCHC RDW Plt Count MPV Immature Gran % (Auto) Neut % (Auto) Lymph % (Auto) [place] % (Auto) Eos % (Auto) Baso % (Auto) Lymph # (Auto) [place] # (Auto) Eos # (Auto) Baso # (Auto) Abs Immat Gran (auto) Absolute Neuts (auto) Absolute Nucleated RBC Nucleated RBC % (auto) Hold Purple Top PT INR VBG pH VBG pCO2 VBG pO2 VBG HCO3 VBG O2 Saturation VBG Base Excess Anion Gap Estim Creat Clear Calc Estimated GFR Random Glucose Lactic Acid Calcium Magnesium Ferritin Total Bilirubin AST ALT Alkaline Phosphatase Lactate Dehydrogenase B-Natriuretic Peptide < 10 Total Protein Albumin Procalcitonin 0.06 COVID-19 ([facility]) COVID-19 Clin Com Influenza Type A (PCR) NEGATIVE Influenza Type B (PCR) NEGATIVE RSV RNA Qual (PCR) NEGATIVE SARS-CoV-2 RNA (RT-PCR) NEGATIVE 03/24/21 03/24/21 03/24/21 19:54 19:54 19:54 MCV 92.0 MCH 29.9 MCHC 32.5 RDW 13.2 Plt Count 265 MPV 10.3 Immature Gran % (Auto) 0.5 H Neut % (Auto) 83.9 H Lymph % (Auto) 7.0 L [place] % (Auto) 6.6 Eos % (Auto) 1.6 Baso % (Auto) 0.4 Lymph # (Auto) 1.4 [place] # (Auto) 1.3 H Eos # (Auto) 0.3 Baso # (Auto) 0.1 Abs Immat Gran (auto) 0.09 H Absolute Neuts (auto) 16.7 H Absolute Nucleated RBC 0.000 Nucleated RBC % (auto) 0.0 Hold Purple Top SEE NOTE PT INR VBG pH VBG pCO2 VBG pO2 VBG HCO3 VBG O2 Saturation VBG Base Excess Anion Gap Estim Creat Clear Calc Estimated GFR Random Glucose Lactic Acid 1.2 Calcium Magnesium Ferritin Total Bilirubin AST ALT Alkaline Phosphatase Lactate Dehydrogenase B-Natriuretic Peptide Total Protein Albumin Procalcitonin COVID-19 ([facility]) COVID-19 Clin Com Influenza Type A (PCR) Influenza Type B (PCR) RSV RNA Qual (PCR) SARS-CoV-2 RNA (RT-PCR) 03/24/21 03/25/21 03/25/21 19:57 08:18 08:18 MCV 92.1 MCH 29.3 MCHC 31.8 RDW 13.2 Plt Count 280 MPV 10.4 Immature Gran % (Auto) 0.6 H Neut % (Auto) 83.6 H Lymph % (Auto) 9.0 L [place] % (Auto) 6.5 Eos % (Auto) 0.1 Baso % (Auto) 0.2 Lymph # (Auto) 1.6 [place] # (Auto) 1.2 Eos # (Auto) 0.0 Baso # (Auto) 0.0 Abs Immat Gran (auto) 0.11 H Absolute Neuts (auto) 15.2 H Absolute Nucleated RBC 0.000 Nucleated RBC % (auto) 0.0 Hold Purple Top PT INR VBG pH 7.40 VBG pCO2 50 VBG pO2 43 VBG HCO3 31 H VBG O2 Saturation 67.0 VBG Base Excess 5.4 Anion Gap 14 Estim Creat Clear Calc 186.5 Estimated GFR > 60 Random Glucose 115 Lactic Acid Calcium 9.3 D Magnesium Ferritin Total Bilirubin AST ALT Alkaline Phosphatase Lactate Dehydrogenase B-Natriuretic Peptide Total Protein Albumin Procalcitonin COVID-19 ([facility]) COVID-19 Clin Com Influenza Type A (PCR) Influenza Type B (PCR) RSV RNA Qual (PCR) SARS-CoV-2 RNA (RT-PCR) Assessment and Plan (1) Sepsis: Status: Acute (2) Acute respiratory failure with hypoxia: Status: Acute (3) Pneumonia: Status: Acute (4) Otitis media: Status: Acute Assessment and Plan: this is a 25-year-old male with no significant past medical history presents to the hospital with shortness of breath, cough, as well as your infection found to be hypoxic # sepsis # acute hypoxic respiratory failure # secondary to pneumonia CT angiogram showed bilateral infiltrate although suboptimal to report on PE COVID-19 PCR as well as NAAT are negative Wean oxygen down as tolerated treat with IV antibiotics follow cultures monitor respiratory status consult Infectious Disease for further recommendation # otitis media antibiotics as above # morbid obesity Advised to lose weight # GUSTAVO Use CPAP at night and naps Lovenox Quality Stroke Does the patient have a stroke diagnosis?: No VTE Prior VTE?: No VTE Risk Level:: Medical - moderate - high VTE Device Contraindication: Treatment Not Indicated VTE Drug Contraindication: N/A - Med Ordered
[2021-03-25] MEDS: Albuterol/Iprat 2.5/0.5MG 3 ML AMPUL.NEB INHALE (19:44)
--- NOTE | 2021-03-25 20:31 | PC.NURSE ---
Pt resting on stretcher in NAD, breathing with ease on neb tx, aaox4, reports I feel 100% better, reporting he has no pain while breathing, only when he coughs. Pt aware and agreeable to plan for admission. Pt stretcher lowest locked position, rails raised, call heath within reach.
[2021-03-25] MEDS: cefTRIAXone sodium 1 GM in 0.9 % Sodium Chloride 50 ML IV (21:23)
--- NOTE | 2021-03-25 22:32 | PC.NURSE ---
Report given to [facility] RN.
[2021-03-26] MEDS: Azithromycin 500 MG in 0.9 % Sodium Chloride 250 ML 125 MG IV
[2021-03-26 03:15] VITALS: BP 132/78; PULSE 110; RESP 20; TEMP 36.9; O2SAT 95
[2021-03-26 07:01] VITALS: BP 140/80; PULSE 101; RESP 18; TEMP 36.4; O2SAT 94
[2021-03-26 07:14] LABS: Hematocrit 42.4 % (42.0-52.0); Hemoglobin 13.5 g/dl (14.0-18.0); Mean Corpuscular HGB Conc 31.8 g/dl (31.0-36.0); Mean Corpuscular Hemoglobin 29.5 pg (27.0-33.0); Mean Corpuscular Volume 92.8 fL (80.0-98.0); Mean Platelet Volume 10.4 fL (9.4-12.4); Platelet Count 302 X10*3/uL (160-400); Red Blood Count 4.57 X10*6/uL (4.60-5.80); Red Cell Distribution Width 13.1 % (11.0-16.0)
[2021-03-26 07:31] LABS: Anion Gap 14 (12-20); Blood Urea Nitrogen 13 mg/dL (9-16); Calcium 9.7 mg/dL (8.4-10.2); Carbon Dioxide 26 mmol/L (22-29); Chloride 105 mmol/L (96-108); Creatinine Clr Calc Pharmacy 196.8; Estimated Glomerular Filt Rate > 60; Glucose Random 216 mg/dL (60-115); Potassium 4.7 mmol/L (3.3-5.1); Sodium 140 mmol/L (135-145)
[2021-03-26] MEDS: methylPREDNISolone Sod Succ 40 MG/ML VIAL IVPUSH (08:12)
[2021-03-26] MEDS: guaiFENesin LA 600 MG TAB.ER.12H PO (08:12)
--- NOTE | 2021-03-26 08:48 | MHC.CM.PN ---
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 CM has initiated and will follow for dc planning.Patient has no PCP.
--- NOTE | 2021-03-26 10:27 | MHC.CM.PN ---
Patient has been medically cleared for dc to home today, no services.
--- NOTE | 2021-03-26 10:38 | PM.DS ---
DS: Providers Provider Date of Service: 03/26/21 Date of admission: 03/24/21 21:24 Primary care physician: None Physician Consults: 03/25/21 06:36 Consult to Infectious Diseases Routine Consulting Provider: Rosalva Acosta Reason for consultation: COVID? Has provider been notified: No DS: Diagnosis Discharge Diagnosis (1) Sepsis: Status: Acute (2) Acute respiratory failure with hypoxia: Status: Acute (3) Pneumonia: Status: Acute (4) Otitis media: Status: Acute DS: Summary Hospital Course Hospital Course: Admission note HPI ?25-year-old male with no significant past medical history who presents to the hospital with complaints of fevers, shortness of breath, cough, sputum production, chills, diaphoresis, for the past 5 days.? Patient also developed infection started last night with ear pain bilaterally as well as ear discharge.? He denies any abdominal pain nausea or vomiting, no diarrhea constipation, no urinary symptoms with? no lower extremity edema. ? Patient is unvaccinated against COVID-19.? His not had any recent? sick contacts that he is aware of. ? On arrival to the ED patient hemodynamically stable with a temp of? 98.3, heart rate of 121, respiratory rate of 24, blood pressure 151/79, satting 89% on room air.? Patient now on 3 L of oxygen satting 94%. ? Labs are significant for WBC count of 19.9,? BNP negative, otherwise unremarkable.? COVID-19 PCR negative, RSV negative, influenza a and B are negative. ?chest x-ray as well as CT angiogram shows bilateral infiltrate ?patient will be admitted for management of hypoxia pneumonia Hospital course The patient was admitted for treatment of sepsis, hypoxic respiratory failure secondary to pneumonia as shown on CT scan which showed bilateral infiltrates with no clear PE. Tested negative for COVID. He required oxygen supplement at time of presentation along with CPAP but was weaned down to room air at the day of discharge. Treated with IV antibiotics of azithromycin and ceftriaxone with addition of steroids and DuoNeb nebulizer. Otitis media was treated with antibiotics as above. he was advised to lose weight Advised to quit smoking and prescribed nicotine patches continue 5 more days of azithromycin and Ceftin Continue prednisone for 3 more days to use albuterol inhaler as needed Time Spent with Patient Time attestation: Total time spent providing and/or coordinating discharge services: Discharge coordination time: Greater than 30 minutes Quality: Stroke Does the patient have a stroke diagnosis?: No Physical Exam Vital Signs: Vital Signs: Last Vital Signs Temp 97.6 F 03/26/21 07:01 Pulse 101 H 03/26/21 07:01 Resp 18 03/26/21 07:01 BP 140/80 H 03/26/21 07:01 Pulse Ox 94 03/26/21 07:01 Oxygen Flow Rate 5 03/25/21 19:50 BMI result Body Mass Index 51.5 Const: Other: Constitutional : Alert, oriented, obese, not in distress Neck : Normal inspection, Supple Cardiovascular : RRR, S1 S2, no lower extremity edema Respiratory : Fair bilateral air entry no wheezes or crackles Gastrointestinal: soft, lax, Normal bowel sounds, Non tender Skin : Warm, Dry Neurological : Alert & oriented x3, No focal deficit DS: Data Data Completed and Pending Labs on day of discharge: Laboratory Results - last 24 hr 03/26/21 03/26/21 06:56 06:56 WBC 21.0 H RBC 4.57 L Hgb 13.5 L Hct 42.4 MCV 92.8 MCH 29.5 MCHC 31.8 RDW 13.1 Plt Count 302 MPV 10.4 Absolute Nucleated RBC 0.000 Nucleated RBC % (auto) 0.0 Sodium 140 Potassium 4.7 Chloride 105 Carbon Dioxide 26 Anion Gap 14 BUN 13 Creatinine 0.73 Estim Creat Clear Calc 196.8 Estimated GFR > 60 Random Glucose 216 H D Calcium 9.7 Preliminary micro results at discharge 03/24/21 17:46 Blood Culture - Preliminary Blood - Venous No growth after 24 hours. 03/24/21 17:03 Blood Culture - Preliminary Blood - Venous No growth after 24 hours. Discharge Plan Discharge Patient Disposition: Home, Self-Care Discharge Diagnosis: Sepsis, pneumonia Otitis media Referrals: Physician,None [Primary Care Provider] - 1 Week Discharge Medications: New guaifenesin [Mucinex] 600 mg Tablet Extended Release 12hr 600 mg PO BID 10 Days Qty: 20 RF: 0 prednisone 20 mg tablet 40 mg PO DAILY Qty: 6 RF: 0 azithromycin 500 mg tablet 500 mg PO DAILY 5 Days Qty: 5 RF: 0 cefuroxime axetil 500 mg tablet 500 mg PO BID Qty: 10 RF: 0 albuterol sulfate 90 mcg/actuation HFA aerosol inhaler 2 puff inhalation Q4-6H PRN (Reason: shortness of breath or wheezing) Qty: 6.7 RF: 1 nicotine 14 mg/24 hr patch 24 hour 1 patch transdermal DAILY Qty: 28 RF: 0 Discharge Orders: Discharge Order (Routine); Ordered 03/26/21 Ordered By: Luis Enrique Mejia Diet: advance to usual diet Activity on Discharge: As tolerated Stand Alone Forms: Patient Portal Discharge page Care Plan Goals: Read below Health Concerns: Read below Plan of Treatment: Read below Assessment: You were admitted to the hospital for evaluation of difficulty breathing. Images including x-ray and CT scan were significant for pneumonia. Your treated with IV antibiotics, nebulizers and steroids with good response over the course of hospital stay. Continue azithromycin and Ceftin for 5 more days continue prednisone as prescribed to use albuterol inhaler as needed We advise you to quit smoking and use nicotine patch
== END 2021-03-26 10:51 | disposition home or self-care (01) | DRG 720 ==
LOC: HO.ED 21:26 → HO.EDOVER 21:40 → HO.IMC 03-25 22:13
PROVIDERS: Nurse Practitioner Family; Physician Assistant Medical; Admitting Provider Internal Medicine; Emergency Provider Internal Medicine; Visit Provider Student in an Organized Health Care Education/Training Program
DX: A41.9 Sepsis, unspecified organism (principal); J96.01 Acute respiratory failure with hypoxia; J18.9 Pneumonia, unspecified organism; H66.003 Acute suppurative otitis media without spontaneous rupture of ear drum, bilateral; F17.210 Nicotine dependence, cigarettes, uncomplicated; E66.01 Morbid (severe) obesity due to excess calories; Z68.43 Body mass index [BMI] 50.0-59.9, adult; G47.33 Obstructive sleep apnea (adult) (pediatric); Z99.89 Dependence on other enabling machines and devices; Z20.822 Contact with and (suspected) exposure to COVID-19; Z71.6 Tobacco abuse counseling; Z79.899 Other long term (current) drug therapy
CPT/HCPCS: 0241U; 36415; 71046; 71275; 80048; 80053; 82728; 82803; 83605; 83615; 83735; 83880; 84145; 85025; 85027; 85610; 87040; 87635; 93005; 94640; 94660; 96361; 96365; 96366; 96367; 99285; 99291; J0456; J0696; J1100; J1650; J2920; Q9967

== ENCOUNTER 2023-07-27 16:10 | Emergency (ER) | payer OTHER, SELFPAY ==
--- NOTE | ~2023-07-27 | CT_ITS ---
EXAMINATION: CT ABDOMEN AND PELVIS WITHOUT CONTRAST CLINICAL INFORMATION: Abdominal pain COMPARISON: 07/07/2016 TECHNIQUE: Multidetector volumetric imaging was performed from the superior aspect of the liver through the pubic symphysis. Sagittal and coronal reformatted images were obtained on the technologist's workstation. This CT examination was performed using dose optimization techniques as appropriate, variously including the following: *Automated exposure control *Adjustment of mA and/or kV according to patient size (this includes techniques or standardized protocols for targeted exams where dose is matched to indication/reason for exam; i.e. extremities or head) *Use of iterative reconstruction technique DLP: 1365 mGy-cm FINDINGS: LUNG BASES: The visualized lung bases are unremarkable. LIVER, GALLBLADDER, AND BILIARY TREE: The liver is normal in size, shape, and attenuation. No focal hepatic lesion or biliary ductal dilatation is present. The gallbladder is unremarkable with no evidence of radiopaque gallstones, gallbladder wall thickening, or obvious pericholecystic inflammatory changes. PANCREAS: Unremarkable. SPLEEN: Unremarkable. ADRENAL GLANDS: Unremarkable. KIDNEYS AND URETERS: The kidneys are normal in size, shape, and attenuation. No hydronephrosis, hydroureter, or calculi seen. No perinephric stranding. BLADDER: Unremarkable. GASTROINTESTINAL TRACT: The small and large bowel are unremarkable. Colon is decompressed. The appendix is unremarkable. ABDOMINAL WALL: No significant hernia is appreciated. LYMPH NODES: Normal. VASCULAR: Unremarkable. PELVIC VISCERA: Unremarkable. OSSEOUS STRUCTURES: Unremarkable. CT/CT abdomen pelvis wo IV con IMPRESSION: No significant abnormality.
[2023-07-27 16:32] VITALS: BP 144/90; PULSE 97; RESP 18; TEMP 36; O2SAT 98; BMI 52.4
--- NOTE | 2023-07-27 16:32 | ED_ITS ---
HPI - Nausea/Vomiting/Diarrhea General Chief complaint: Nausea/Vomiting/Diarrhea Stated complaint: Abdominal pain Time Seen by Provider: 07/27/23 20:22 Source: patient, RN notes reviewed and old records reviewed Mode of arrival: ambulatory Limitations: no limitations History of Present Illness HPI Narrative: 28-year-old male with past medical history significant for obesity presents for evaluation of abdominal pain and diarrhea. Patient reports diarrhea for the last 3 days. He denies any black or bloody stool. He is concerned that he has ?food poisoning. ? Denies any history abdominal surgeries. Denies any fevers, chills recent travel. Denies any sick contacts He has not been on any antibiotics recently Associated nausea: Yes Related Data Previous Rx's ?Medication ?Instructions ?Recorded albuterol sulfate 90 mcg/actuation 2 puff inhalation Q4-6H PRN 03/26/21 aerosol inhaler shortness of breath or wheezing #6.7 grams azithromycin 500 mg tablet 500 mg PO DAILY 5 days #5 tabs 03/26/21 cefuroxime axetil 500 mg tablet 500 mg PO BID #10 tabs 03/26/21 guaifenesin 600 mg tablet, 600 mg PO BID 10 days #20 tabs 03/26/21 extended release 12 hr (Mucinex) nicotine 14 mg/24 hr daily 1 patch transdermal DAILY #28 ea 03/26/21 transdermal patch prednisone 20 mg tablet 40 mg (2 x 20 mg) PO DAILY #6 tabs 03/26/21 fidaxomicin 200 mg tablet (Dificid) 200 mg PO Q12H 10 days #20 tabs 07/28/23 Allergies Allergy/AdvReac Type Severity Reaction Status Date / Time No Known Allergies Allergy Verified 07/27/23 16:36 Review of Systems 2 Constitutional: Constitutional: Denies body ache(s), Denies chills, Denies fever(s) and Denies headache(s) Eyes: Eyes: Denies blurry vision ENT: Denies headache(s) and Denies sore throat Cardiovascular: Cardiovascular: Denies chest pain and Denies dyspnea Respiratory: Respiratory: Denies cough and Denies dyspnea Gastrointestinal: Gastrointestinal: Reports abdominal pain, Denies melena, Denies hematochezia, Reports diarrhea, Reports loose stools, Reports nausea and Reports vomiting Genitourinary: Genitourinary: Denies dysuria Musculoskeletal: Musculoskeletal: Denies back pain Integumentary/Breasts: Skin/Breast: Denies rash Neurologic: Denies headache(s) [facility] Past Medical History Medical History Asthma Hx of fracture of arm Sleep apnea Surgical History History of surgery on arm Family History Family History (Updated 03/25/21 @ 06:40 by Senia Nguyen MD) Mother CVA (cerebral vascular accident) Social History Social History Household Members: Family Housing: House Do you presently have visiting nurse or other home services: No Alcohol intake: current Alcohol intake frequency: a few times a week Patient Tobacco Use Status: Current someday Tobacco user Cigarettes Per Day: 10 Years Smoked: 3 Second Hand Smoke Exposure: No Substance Use Type: Marijuana Advance Directives: No Advance Directives Information Provided: Yes service: No Current occupational status: employed Physical Exam 2 Vital Signs: Vital Signs: Last Vital Signs Temp 97.3 F 07/27/23 20:21 Pulse 82 07/27/23 20:21 Resp 24 H 07/27/23 20:21 BP 139/62 07/27/23 20:21 Pulse Ox 98 07/27/23 20:21 O2 Del Method Room Air 07/27/23 20:21 BMI result Body Mass Index 52.4 Const: General: healthy appearing, comfortable, no acute distress, alert and awake Nutritional Appearance: well nourished Orientation/consciousness: p atient oriented x3 HEENT: Head: Yes normocephalic and Yes atraumatic Eyes: Eyelids: Yes eyelids normal Conjunctivae: conjunctivae normal S clerae: sclerae normal Corneas: corneas normal Pupils: Equal, round and reactive pupils present EOM: EOMs intact bilaterally Neck: Neck: Yes full ROM Resp: Effort & Inspection: normal respiratory effort, able to speak in complete sentences and not labored GI: Inspection: No distended Palpation (GI): Soft to palpation, not firm, Tenderness to palpation present (GI) (Diffuse abdominal pain without guarding or distention.), no guarding and not rigid Skin: General skin exam: elasticity normal Neuro: General: patient oriented x3 Cranial nerves: Yes Equal, round and reactive pupils present and Yes Bilaterally intact EOM present Cognition (Neuro): normal cognition Course Course Course Narrative: 28 y/o male with watery diarrhea and diffuse epigastric abdominal pain for 3 days. No vomiting, reports feeling hot and cold at home. Denies any blood in stool. [place] dizzy with standing earlier today. No known sick contacts. Plan: labs, viral swab Medications Administered Discontinued Medications Generic Name Dose Route Start Last Admin Trade Name Effie PRN Reason Stop Dose Admin Fidaxomicin 200 mg 07/27/23 23:22 07/28/23 00:06 Fidaxomicin 200 Mg Tablet PO 07/27/23 23:23 200 mg ONCE ONE Administration Sodium Chloride 1,000 mls @ 999 mls/hr 07/27/23 20:30 07/27/23 21:48 Ns IV 07/27/23 21:30 Not Given .Q1H1M DANAE Morphine Sulfate 4 mg 07/27/23 21:40 07/27/23 21:49 Morphine Sulfate 4 Mg/Ml Cartridge IM 07/27/23 21:41 4 mg ONCE ONE Administration Protocol Ondansetron HCl 4 mg 07/27/23 21:40 07/27/23 21:48 Ondansetron Odt 4 Mg Tab.Rapdis TRANSLINGU 07/27/23 21:41 4 mg ONCE ONE Administration Medical Decision Making Medical Decision Making [facility] Narrative: 28-year-old male presents for evaluation of diarrhea for last 3 days he also complains of nausea and vomiting. His labs are significant for leukocytosis of 12.7 K. no anemia. There is a mild left shift. Patient has a mild transaminitis of unclear etiology. Glucose elevated to 131 over this is a random glucose, not fasting. Electrolytes are within normal limits, renal function within normal limits. Plan for CT scan and pelvis given the white count and the tenderness on palpation. Will also send a stool sample. Differential Diagnosis Differential Diagnoses: The differential diagnosis associated with the presentation includes Abdominal pain Constipation Colitis Diverticulitis C diff Lab Data [facility] Lab Attestation statement: I reviewed the patient's lab results. See above 07/27/23 17:29 07/27/23 17:29 Labs: Lab Results 07/27/23 07/27/23 07/27/23 Range/Units 17:29 19:07 21:55 WBC 12.7 H (4.8-10.8) X10*3/uL RBC 5.67 D (4.60-5.80) X10*6/uL Hgb 16.6 D (14.0-18.0) g/dl Hct 49.5 (42.0-52.0) % MCV 87.3 (80.0-98.0) fL MCH 29.3 (27.0-33.0) pg MCHC 33.5 (31.0-36.0) g/dl RDW 13.4 (11.0-16.0) % Plt Count 287 (160-400) X10*3/uL MPV 10.3 (9.4-12.4) fL Immature Gran % (Auto) 0.2 (0.0-0.4) % Neut % (Auto) 75.1 H (45-73) % Lymph % (Auto) 13.2 L (20-40) % Ashley % (Auto) 7.5 (2-11) % Eos % (Auto) 3.8 (0-4) % Baso % (Auto) 0.2 (0-2) % Lymph # (Auto) 1.7 (1.2-4.9) X10*3/uL Ashley # (Auto) 1.0 (0.1-1.2) X10*3/uL Eos # (Auto) 0.5 H (0.0-0.4) X10*3/uL Baso # (Auto) 0.0 (0.0-0.2) X10*3/uL Abs Immat Gran (auto) 0.03 (0.00-0.03) X10*3/uL Absolute Neuts (auto) 9.6 H (2.0-8.3) x10*3/uL Absolute Nucleated RBC 0.000 (0.0-0.012) X10*3/uL Nucleated RBC % (auto) 0.0 (0.0-0.2) /100WBC Sodium 137 (135-145) mmol/L Potassium 3.6 (3.3-5.1) mmol/L Chloride 103 (96-108) mmol/L Carbon Dioxide 25 (22-29) mmol/L Anion Gap 13 (12-20) BUN 10 (9-16) mg/dL Creatinine 0.70 (0.5-1.4) mg/dL Estim Creat Clear Calc 209.0 Estimated GFR > 60 Random Glucose 131 H (60-115) mg/dL Calcium 9.5 (8.4-10.2) mg/dL Magnesium 1.9 (1.6-2.6) mg/dL Total Bilirubin 0.4 (0.0-1.0) mg/dL Direct Bilirubin 0.2 (0.0-0.5) mg/dL AST 51 H (5-37) U/L ALT 86 H (0-40) U/L Alkaline Phosphatase 98 (39-117) U/L Total Protein 7.6 (6.5-8.0) g/dL Albumin 4.1 (3.5-5.0) g/dL Lipase 15 (8-78) U/L Urine Color Yellow Urine Appearance Clear Urine pH 5.5 (5.0-9.0) Ur Specific [place] >= 1.030 H (1.005-1.025) Urine Protein 30 (1+) H (Neg-Trace) mg/dL Urine Glucose (UA) Negative (Negative) mg/dL Urine Ketones Negative (Negative) mg/dL Urine Blood Negative (Negative) Urine Nitrite Negative (Negative) Ur Leukocyte Esterase Negative (Negative) Urine RBC 0-2 (0-2) /HPF Urine WBC 0-5 (0-5) /HPF Ur Squamous Epith Cells 0-2 (0-2) /HPF Urine Bacteria None Seen (None Seen) Hyaline Casts 6-10 (0-2) /LPF C. difficile Tox B Gene (Negative) COVID-19 ([facility]) Negative (Negative) COVID-19 Clin Com See Note Influenza Type A (TL) Negative (Negative) Influenza Type B (TL) Negative (Negative) Influenza A & B Note See Note 07/27/23 Range/Units 22:05 WBC (4.8-10.8) X10*3/uL RBC (4.60-5.80) X10*6/uL Hgb (14.0-18.0) g/dl Hct (42.0-52.0) % MCV (80.0-98.0) fL MCH (27.0-33.0) pg MCHC (31.0-36.0) g/dl RDW (11.0-16.0) % Plt Count (160-400) X10*3/uL MPV (9.4-12.4) fL Immature Gran % (Auto) (0.0-0.4) % Neut % (Auto) (45-73) % Lymph % (Auto) (20-40) % Ashley % (Auto) (2-11) % Eos % (Auto) (0-4) % Baso % (Auto) (0-2) % Lymph # (Auto) (1.2-4.9) X10*3/uL Ashley # (Auto) (0.1-1.2) X10*3/uL Eos # (Auto) (0.0-0.4) X10*3/uL Baso # (Auto) (0.0-0.2) X10*3/uL Abs Immat Gran (auto) (0.00-0.03) X10*3/uL Absolute Neuts (auto) (2.0-8.3) x10*3/uL Absolute Nucleated RBC (0.0-0.012) X10*3/uL Nucleated RBC % (auto) (0.0-0.2) /100WBC Sodium (135-145) mmol/L Potassium (3.3-5.1) mmol/L Chloride (96-108) mmol/L Carbon Dioxide (22-29) mmol/L Anion Gap (12-20) BUN (9-16) mg/dL Creatinine (0.5-1.4) mg/dL Estim Creat Clear Calc Estimated GFR Random Glucose (60-115) mg/dL Calcium (8.4-10.2) mg/dL Magnesium (1.6-2.6) mg/dL Total Bilirubin (0.0-1.0) mg/dL Direct Bilirubin (0.0-0.5) mg/dL AST (5-37) U/L ALT (0-40) U/L Alkaline Phosphatase (39-117) U/L Total Protein (6.5-8.0) g/dL Albumin (3.5-5.0) g/dL Lipase (8-78) U/L Urine Color Urine Appearance Urine pH (5.0-9.0) Ur Specific [place] (1.005-1.025) Urine Protein (Neg-Trace) mg/dL Urine Glucose (UA) (Negative) mg/dL Urine Ketones (Negative) mg/dL Urine Blood (Negative) Urine Nitrite (Negative) Ur Leukocyte Esterase (Negative) Urine RBC (0-2) /HPF Urine WBC (0-5) /HPF Ur Squamous Epith Cells (0-2) /HPF Urine Bacteria (None Seen) Hyaline Casts (0-2) /LPF C. difficile Tox B Gene POSITIVE A* (Negative) COVID-19 ([facility]) (Negative) COVID-19 Clin Com Influenza Type A (TL) (Negative) Influenza Type B (TL) (Negative) Influenza A & B Note Independent Interpretation I performed an independent interpretation of an: CT Scan (Agree with Radiology interpretation, no acute intro abdominal pathology) Radiology Impression Discussion of test interpretation with radiology: I have reviewed the radiologist's reading. (No acute intra-abdominal pathology) Discharge Plan Discharge Clinical Impression: Clostridium difficile infection Patient Disposition: Home, Self-Care Instructions: C. Diff (Clostridioides Difficile) Infection (ED) Additional Instructions: You tested positive for an infection called C diff colitis. This is a highly contagious infection that causes diarrhea Wash her hands frequently especially after bowel movements Take your antibiotic twice daily for 10 days Return for new or worsening symptoms Prescriptions: New Dificid 200 mg tablet 200 mg PO Q12H 10 Days Qty: 20 0RF No Action guaifenesin [Mucinex] 600 mg Tablet Extended Release 12hr 600 mg PO BID 10 Days Qty: 20 0RF prednisone 20 mg tablet 40 mg PO DAILY Qty: 6 0RF azithromycin 500 mg tablet 500 mg PO DAILY 5 Days Qty: 5 0RF cefuroxime axetil 500 mg tablet 500 mg PO BID Qty: 10 0RF albuterol sulfate 90 mcg/actuation HFA aerosol inhaler 2 puff inhalation Q4-6H PRN (Reason: shortness of breath or wheezing) Qty: 6.7 1RF nicotine 14 mg/24 hr patch 24 hour 1 patch transdermal DAILY Qty: 28 0RF Stand Alone Forms: Work/School Release Print Language: [place]
[2023-07-27 17:37] LABS: MANUAL DIFF FLAG NO
[2023-07-27 17:39] LABS: Basophils Percent Auto 0.2 % (0-2); Eosinophils Absolute Auto 0.5 X10*3/uL (0.0-0.4); Eosinophils Percent Auto 3.8 % (0-4); Hematocrit 49.5 % (42.0-52.0); Hemoglobin 16.6 g/dl (14.0-18.0); Imm Gran Abs Auto 0.03 X10*3/uL (0.00-0.03); Imm Gran Pct Auto 0.2 % (0.0-0.4); Lymphocytes Absolute Auto 1.7 X10*3/uL (1.2-4.9); Lymphocytes Percent Auto 13.2 % (20-40); Mean Corpuscular HGB Conc 33.5 g/dl (31.0-36.0); Mean Corpuscular Hemoglobin 29.3 pg (27.0-33.0); Mean Corpuscular Volume 87.3 fL (80.0-98.0); Mean Platelet Volume 10.3 fL (9.4-12.4); Monocytes Percent Auto 7.5 % (2-11); Neutrophils Absolute Auto 9.6 x10*3/uL (2.0-8.3); Neutrophils Percent Auto 75.1 % (45-73); Platelet Count 287 X10*3/uL (160-400); Red Blood Count 5.67 X10*6/uL (4.60-5.80); Red Cell Distribution Width 13.4 % (11.0-16.0); White Blood Count 12.7 X10*3/uL (4.8-10.8)
[2023-07-27 18:03] LABS: Alanine Aminotransferase 86 U/L (0-40); Albumin Level 4.1 g/dL (3.5-5.0); Alkaline Phosphatase 98 U/L (39-117); Anion Gap 13 (12-20); Aspartate Amino Transferase 51 U/L (5-37); Bilirubin Direct 0.2 mg/dL (0.0-0.5); Blood Urea Nitrogen 10 mg/dL (9-16); Calcium 9.5 mg/dL (8.4-10.2); Carbon Dioxide 25 mmol/L (22-29); Chloride 103 mmol/L (96-108); Estimated Glomerular Filt Rate > 60; Glucose Random 131 mg/dL (60-115); Lipase 15 U/L (8-78); Potassium 3.6 mmol/L (3.3-5.1); Sodium 137 mmol/L (135-145); Total Protein 7.6 g/dL (6.5-8.0)
[2023-07-27 18:06] LABS: Bilirubin Total 0.4 mg/dL (0.0-1.0); Magnesium 1.9 mg/dL (1.6-2.6)
[2023-07-27 19:13] LABS: Appearance Urine Clear; Color Urine Yellow; Glucose Urine UA Negative (Negative); Leukocyte Esterase Urine Negative (Negative); Nitrite Urine Negative (Negative); PH 5.5 (5.0-9.0); Specific Gravity - Urine >= 1.030 (1.005-1.025); UMIC TRIGGER UACC YES; Urine Blood Negative (Negative); Urine Ketones Negative (Negative); Urine Protein 30 (1+) mg/dL (Neg-Trace)
[2023-07-27 19:25] LABS: Bacteria Urine None Seen (None Seen); RBC Urine 0-2 /HPF (0-2); Squamous Epithelial Cell Urine 0-2 /HPF (0-2); WBC Urine 0-5 /HPF (0-5)
--- NOTE | 2023-07-27 19:25 | PC.NURSE ---
pt to attempt to give stool sample at this time per request
[2023-07-27 20:21] VITALS: BP 139/62; PULSE 82; RESP 24; TEMP 36.3; O2SAT 98
--- NOTE | 2023-07-27 21:38 | PC.NURSE ---
this nurse was notified by CT that pt IV access in L-AC blew when flushed, this nurse attempted x2 to obtain alternate access unsuccessfully- Provider aware
[2023-07-27] MEDS: Ondansetron ODT 4 MG TAB.RAPDIS TRANSLINGU (21:48)
[2023-07-27] MEDS: Morphine Sulfate 4 MG/ML CARTRIDGE IM (21:49)
[2023-07-27 22:16] LABS: COVID-19 Test Negative (Negative); IDNOW Serial# 16C4AD1C; IDNOW Serial# 55D5AD1C; Influenza A Negative (Negative); Influenza B2 Negative (Negative)
[2023-07-27 23:08] LABS: CDiff Gene PCR POSITIVE (Negative)
[2023-07-28] MEDS: Fidaxomicin 200 MG TABLET PO (00:06)
[2023-07-28 00:51] VITALS: BP 136/64; PULSE 81; RESP 20; TEMP 36.4; O2SAT 99
[2023-07-28 01:19] VITALS: BP 136/64; PULSE 81; RESP 20; TEMP 36.4; O2SAT 99
[2023-07-28 01:45] LABS: CDIFF Internal ctrl Dots and bkg OK (V); CDiff Toxin Negative (Negative)
[2023-07-28 09:47] LABS: Adenovirus F 40/41 Not Detected (Not Detect.); Astrovirus Not Detected (Not Detect.); Campylobacter Not Detected (Not Detect.); Cryptosporidium Not Detected (Not Detect.); Cyclospora cayetanensis Not Detected (Not Detect.); E. coli EAEC Not Detected (Not Detect.); E. coli EPEC Not Detected (Not Detect.); E. coli ETEC Not Detected (Not Detect.); E. coli STEC Not Detected (Not Detect.); Entamoeba histolytica Not Detected (Not Detect.); Giardia lamblia Not Detected (Not Detect.); Norovirus GI/GII Not Detected (Not Detect.); Plesiomonas shigelloides Not Detected (Not Detect.); Rotavirus A Not Detected (Not Detect.); Salmonella Not Detected (Not Detect.); Sapovirus Not Detected (Not Detect.); Shigella sp./EIEC Not Detected (Not Detect.); Vibrio Not Detected (Not Detect.); Vibrio Cholerae Not Detected (Not Detect.); Yersinia enterocolitica Not Detected (Not Detect.)
== END 2023-07-28 01:19 | disposition home or self-care (01) ==
PROVIDERS: Physician Assistant; Emergency Provider Emergency Medicine Emergency Medical Services
DX: A04.72 Enterocolitis due to Clostridium difficile, not specified as recurrent (principal); R11.2 Nausea with vomiting, unspecified; D89.89 Other specified disorders involving the immune mechanism, not elsewhere classified; Z11.52 Encounter for screening for COVID-19; Z79.899 Other long term (current) drug therapy
CPT/HCPCS: 36415; 74176; 80048; 80076; 81001; 83690; 83735; 85025; 87324; 87493; 87502; 87507; 87635; 96372; 99284; J2270